=== PATIENT | female | born 1945 | race African-American/Black ===

== ENCOUNTER 2020-04-01 12:51 | Emergency (ER) | payer OTHER ==
[2020-04-01 13:07] VITALS: TEMP 98.4; BMI 30.9
[2020-04-01 16:18] VITALS: BP 167/77; PULSE 54
== END 2020-04-01 16:20 | disposition home or self-care (01) ==
LOC: JER 12:51
DX: R60.0 Localized edema (principal)
CPT/HCPCS: 93971; 93971-TC; 99284-25

== ENCOUNTER 2020-09-15 21:21 | Inpatient (IN) | payer OTHER ==
[2020-09-15 22:15] VITALS: BMI 34.0
[2020-09-15] MEDS ORDERED: ACETAMINOPHEN INJECTION 100 ML IVPB ONE (22:30)
[2020-09-15] MEDS ORDERED: ACETAMINOPHEN 1000 MG/100 ML VIAL (NON FORMULARY) IVPB ONE (22:43)
[2020-09-15 22:50] LABS: BASO % 0.8 % (0-2.0); EOS % 1.2 % (0-4.5); HEMATOCRIT 41.8 % (32.4-45.2); HEMOGLOBIN 14.1 GM/dL (10.7-15.3); LYMPH % 29.9 % (8-40); MCH 34.7 pg (25.7-33.7); MCHC 33.7 g/dl (32.0-36.0); MEAN CELL VOLUME 103.1 fl (80-96); MEAN PLT VOLUME 8.5 fl (7.5-11.1); MONO % 10.8 % (3.8-10.2); NEUT % 57.3 % (42.8-82.8); PLATELET COUNT 219 K/MM3 (134-434); RBC 4.06 M/mm3 (3.60-5.2); RDW 13.7 % (11.6-15.6); WHITE BLOOD COUNT 5.4 K/mm3 (4.0-10.0)
[2020-09-15 22:56] LABS: INR 1.09 (0.83-1.09); PROTHROMBIN TIME (PATIENT) 13.1 SEC (9.7-13.0)
[2020-09-15 23:08] LABS: CHLORIDE 112 mmol/L (98-107); POTASSIUM 3.7 mmol/L (3.5-5.1); SODIUM 144 mmol/L (136-145)
[2020-09-15 23:11] LABS: BLOOD UREA NITROGEN 20.5 mg/dL (7-18); CALCIUM 8.9 mg/dL (8.5-10.1)
[2020-09-15 23:12] LABS: ALBUMIN 3.7 g/dl (3.4-5.0); ANION GAP 6 MMOL/L (8-16); CO2 27 mmol/L (21-32); GLUCOSE,RANDOM 58 mg/dL (74-106)
[2020-09-15 23:15] LABS: CREATININE 1.1 mg/dL (0.55-1.3); SGOT/AST 19 U/L (15-37)
[2020-09-15 23:16] LABS: BILIRUBIN,TOTAL 0.4 mg/dL (0.2-1)
[2020-09-15 23:17] LABS: TOT PROT 7.3 g/dl (6.4-8.2)
[2020-09-15 23:18] LABS: ALK PHOS 71 U/L (45-117)
[2020-09-15 23:40] LABS: SGPT/ALT 16 U/L (13-61)
[2020-09-15] MEDS ORDERED: VALSARTAN 40 MG TABLET PO ONE (23:45)
[2020-09-15] MEDS ORDERED: DEXTROSE 5%-NORMAL SALINE 500 ML IV ONE (23:58)
[2020-09-16] MEDS ORDERED: VALSARTAN 80 MG TABLET ONE ×2 (00:06→11:14)
[2020-09-16 03:55] LABS: PH,URINE 6.5 (5.0-8.0); URINE APPEARANCE CLEAR; URINE BILIRUBIN NEGATIVE (NEGATIVE); URINE COLOR YELLOW; URINE GLUCOSE (UA) NEGATIVE (NEGATIVE); URINE KETONE NEGATIVE (NEGATIVE); URINE LEUK ESTERASE NEGATIVE (NEGATIVE); URINE NITRITE NEGATIVE (NEGATIVE); URINE PROTEIN NEGATIVE (NEGATIVE)
[2020-09-16 04:33] LABS: URINE AMPHETAMINES NEGATIVE ng/ml (CUTOFF=500); URINE BARBITURATES NEGATIVE ng/ml (CUTOFF=200); URINE BENZODIAZEPINES NEGATIVE ng/ml (CUTOFF=200)
[2020-09-16 04:34] LABS: METHADONE, UR NEGATIVE ng/ml (CUTOFF=300); OPIATES, URI NEGATIVE ng/ml (CUTOFF=300); PHENCYCLIDINE,URINE NEGATIVE ng/ml (CUTOFF=25)
[2020-09-16 04:46] LABS: COCAINE, UR NEGATIVE ng/ml (CUTOFF=300)
[2020-09-16] MEDS: HEPARIN NA (PORCINE) 5,000 UNITS/ML 1ML VIAL SQ SCH ×3 (07:13→21:57)
[2020-09-16 07:41] LABS: GAMMA GLUTAMYL TRANSPEPTIDASE 22 U/L (5-85)
[2020-09-16 07:58] LABS: HEMATOCRIT 39.9 % (32.4-45.2); HEMOGLOBIN 13.6 GM/dL (10.7-15.3); MCH 35.1 pg (25.7-33.7); MEAN CELL VOLUME 103.2 fl (80-96); MEAN PLT VOLUME 8.6 fl (7.5-11.1); PLATELET COUNT 195 K/MM3 (134-434); RBC 3.87 M/mm3 (3.60-5.2); RDW 13.8 % (11.6-15.6); WHITE BLOOD COUNT 4.1 K/mm3 (4.0-10.0)
[2020-09-16 08:28] LABS: POTASSIUM 3.6 mmol/L (3.5-5.1)
[2020-09-16 08:39] LABS: CALCIUM 8.8 mg/dL (8.5-10.1)
[2020-09-16 08:40] LABS: BLOOD UREA NITROGEN 16.1 mg/dL (7-18); MAGNESIUM 2.2 mg/dL (1.8-2.4)
[2020-09-16 08:43] LABS: CREATININE 0.9 mg/dL (0.55-1.3)
[2020-09-16 08:47] LABS: PHOSPHOROUS 3.6 mg/dL (2.5-4.9)
[2020-09-16] MEDS: CLOPIDOGREL BISULFATE 75 MG TABLET (FP) PO SCH (11:15)
[2020-09-16] MEDS: VALSARTAN 40 MG TABLET PO SCH (12:01)
[2020-09-16] MEDS: POLYETHYLENE GLYCOL 3350 119 GM BTL PO SCH (12:02)
[2020-09-16] MEDS: ACETAMINOPHEN 325 MG TABLET (FP) PO PRN (21:57)
[2020-09-16] MEDS: amLODIPine BESYLATE 5 MG TABLET (FP) PO SCH (21:57)
[2020-09-17] MEDS: HEPARIN NA (PORCINE) 5,000 UNITS/ML 1ML VIAL SQ SCH ×3 (05:47→21:29)
[2020-09-17 07:36] LABS: POTASSIUM 3.5 mmol/L (3.5-5.1)
[2020-09-17 07:45] LABS: CALCIUM 9.1 mg/dL (8.5-10.1)
[2020-09-17 07:46] LABS: ALBUMIN 3.3 g/dl (3.4-5.0); MAGNESIUM 2.1 mg/dL (1.8-2.4)
[2020-09-17 07:49] LABS: CREATININE 0.9 mg/dL (0.55-1.3); PHOSPHOROUS 4.2 mg/dL (2.5-4.9)
[2020-09-17 07:50] LABS: BILIRUBIN,TOTAL 0.6 mg/dL (0.2-1); TOT PROT 6.8 g/dl (6.4-8.2)
[2020-09-17] MEDS: CLOPIDOGREL BISULFATE 75 MG TABLET (FP) PO SCH (09:19)
[2020-09-17] MEDS: VALSARTAN 40 MG TABLET PO SCH (09:20)
[2020-09-17] MEDS: ACETAMINOPHEN 325 MG TABLET (FP) PO PRN ×2 (09:20→21:29)
[2020-09-17] MEDS: POLYETHYLENE GLYCOL 3350 119 GM BTL PO SCH (09:20)
[2020-09-17] MEDS ORDERED: FLU VACCINE (FLULAVAL) PF 60 MCG/0.5 ML SYRINGE 2020-2021 IM ONE (14:02)
[2020-09-17] MEDS: amLODIPine BESYLATE 5 MG TABLET (FP) PO SCH (21:29)
[2020-09-18] MEDS: HEPARIN NA (PORCINE) 5,000 UNITS/ML 1ML VIAL SQ SCH ×3 (05:48→21:34)
[2020-09-18 07:29] LABS: BASO % 0.4 % (0-2.0); EOS % 2.8 % (0-4.5); HEMATOCRIT 41.4 % (32.4-45.2); HEMOGLOBIN 13.7 GM/dL (10.7-15.3); LYMPH % 36.1 % (8-40); MCH 33.6 pg (25.7-33.7); MEAN CELL VOLUME 101.8 fl (80-96); MEAN PLT VOLUME 8.2 fl (7.5-11.1); MONO % 12.9 % (3.8-10.2); NEUT % 47.8 % (42.8-82.8); PLATELET COUNT 200 K/MM3 (134-434); RBC 4.06 M/mm3 (3.60-5.2); RDW 13.6 % (11.6-15.6); WHITE BLOOD COUNT 4.5 K/mm3 (4.0-10.0)
[2020-09-18 07:43] LABS: POTASSIUM 3.7 mmol/L (3.5-5.1)
[2020-09-18 07:46] LABS: ALBUMIN 3.2 g/dl (3.4-5.0); BLOOD UREA NITROGEN 15.9 mg/dL (7-18); CALCIUM 8.4 mg/dL (8.5-10.1); MAGNESIUM 2.2 mg/dL (1.8-2.4)
[2020-09-18 07:49] LABS: PHOSPHOROUS 3.7 mg/dL (2.5-4.9)
[2020-09-18 07:50] LABS: BILIRUBIN,TOTAL 0.8 mg/dL (0.2-1); TOT PROT 6.4 g/dl (6.4-8.2)
[2020-09-18] MEDS ORDERED: POTASSIUM CHLORIDE TABS 20 MEQ TABLET.ER (FP) PO ONE (08:14)
[2020-09-18] MEDS: VALSARTAN 40 MG TABLET PO SCH (09:52)
[2020-09-18] MEDS: CLOPIDOGREL BISULFATE 75 MG TABLET (FP) PO SCH (09:52)
[2020-09-18] MEDS: POLYETHYLENE GLYCOL 3350 119 GM BTL PO SCH (09:55)
[2020-09-19 05:27] VITALS: TEMP 98.3
[2020-09-19] MEDS: HEPARIN NA (PORCINE) 5,000 UNITS/ML 1ML VIAL SQ SCH ×2 (06:38→13:52)
[2020-09-19 08:08] LABS: BASO % 0.5 % (0-2.0); EOS % 3.5 % (0-4.5); HEMATOCRIT 44.3 % (32.4-45.2); HEMOGLOBIN 14.5 GM/dL (10.7-15.3); MCH 33.8 pg (25.7-33.7); MCHC 32.8 g/dl (32.0-36.0); MEAN CELL VOLUME 103.2 fl (80-96); MEAN PLT VOLUME 8.1 fl (7.5-11.1); MONO % 14.7 % (3.8-10.2); NEUT % 41.3 % (42.8-82.8); PLATELET COUNT 184 K/MM3 (134-434); RBC 4.29 M/mm3 (3.60-5.2); RDW 13.8 % (11.6-15.6); WHITE BLOOD COUNT 4.6 K/mm3 (4.0-10.0)
[2020-09-19 08:24] LABS: POTASSIUM 4.3 mmol/L (3.5-5.1)
[2020-09-19 08:34] LABS: ALBUMIN 3.3 g/dl (3.4-5.0); BLOOD UREA NITROGEN 16.4 mg/dL (7-18)
[2020-09-19 08:35] LABS: BILIRUBIN,TOTAL 0.4 mg/dL (0.2-1); TOT PROT 6.7 g/dl (6.4-8.2)
[2020-09-19 08:37] LABS: PHOSPHOROUS 3.4 mg/dL (2.5-4.9)
[2020-09-19 08:39] LABS: CALCIUM 9.1 mg/dL (8.5-10.1); MAGNESIUM 2.4 mg/dL (1.8-2.4)
[2020-09-19 09:03] VITALS: PULSE 76
[2020-09-19] MEDS ORDERED: PT OWN MED DRAWER 7, Y5N ONE (09:17)
[2020-09-19] MEDS: CLOPIDOGREL BISULFATE 75 MG TABLET (FP) PO SCH (09:43)
[2020-09-19] MEDS: POLYETHYLENE GLYCOL 3350 119 GM BTL PO SCH (09:44)
[2020-09-19] MEDS ORDERED: VALSARTAN 40 MG TABLET PO SCH (10:00)
[2020-09-19] MEDS ORDERED: lamiVUDine 150 MG TABLET PO SCH (10:00)
[2020-09-19] MEDS ORDERED: DOLUTEGRAVIR SODIUM 50 MG TABLET (NON-FORMULARY) PO SCH (10:00)
[2020-09-19] MEDS ORDERED: PATIENT'S OWN MEDICATION (NON-FORMULARY) (Dolutegravir Sodium/Lamivudine [Dovato 50-300 Mg PO SCH (10:00)
[2020-09-19 14:12] VITALS: BP 148/77
[2020-09-19] MEDS ORDERED: PENICILLIN G BENZATHINE 2,400,000 UNIT/4 ML PFS IM ONE (15:00)
[2020-09-19] MEDS ORDERED: amLODIPine BESYLATE 5 MG TABLET (FP) PO ONE (16:32)
[2020-09-19] MEDS ORDERED: amLODIPine BESYLATE 10 MG TABLET (FP) PO SCH (22:00)
[2020-09-20] MEDS ORDERED: amLODIPine BESYLATE 10 MG TABLET (FP) PO SCH (10:00)
== END 2020-09-19 17:35 | DRG 309 ==
LOC: JER 21:21 → JERBED 09-16 01:38 → INTOOBSV 09-16 01:38 → OBSVTOIN 09-16 01:38 → J4S 09-16 18:05 → J4W 09-18 00:31
PROVIDERS: ADMIT Internal Medicine; ATTEND Internal Medicine
DX: R00.1 Bradycardia, unspecified (principal); I69.354 Hemiplegia and hemiparesis following cerebral infarction affecting left non-dominant side; M21.372 Foot drop, left foot; I42.2 Other hypertrophic cardiomyopathy; E11.9 Type 2 diabetes mellitus without complications; Z68.34 Body mass index [BMI] 34.0-34.9, adult; E66.9 Obesity, unspecified; Z21 Asymptomatic human immunodeficiency virus [HIV] infection status; A53.9 Syphilis, unspecified; M75.21 Bicipital tendinitis, right shoulder; T44.7X5A Adverse effect of beta-adrenoreceptor antagonists, initial encounter; K21.9 Gastro-esophageal reflux disease without esophagitis; I16.0 Hypertensive urgency; R55 Syncope and collapse; G43.909 Migraine, unspecified, not intractable, without status migrainosus
CPT/HCPCS: 36415; 70450-TC; 70486-TC; 70551-TC; 71045-TC-FY; 72125-TC; 73030-TC-LT-FY; 73070-TC-LT-FY; 80048; 80053; 80061; 80307; 81003; 82550; 82553; 82607; 82746; 82962; 82977; 83036; 83721; 83735; 84100; 84443; 84484; 85025; 85027; 85610; 86593; 86780; 86850; 86900; 86901; 87086; 93005; 93010; 93306-TC; 93880-TC; 93970-TC; 93971-TC; 97116-GP; 97161-GP; 99285-25; C9803; G0008; G0378; G0480; J0131; J1644; Q2036; U0003

== ENCOUNTER 2023-10-07 09:25 | Observation (INO) | payer OTHER ==
[2023-10-07 09:30] VITALS: BMI 32.3
[2023-10-07] MEDS ORDERED: SODIUM CHLORIDE 0.9% 500 ML INFUS.BAG IV ONE ×2 (10:52→15:23)
[2023-10-07] MEDS ORDERED: ACETAMINOPHEN 1000 MG/100 ML BAG IVPB ONE (10:53)
[2023-10-07] MEDS ORDERED: ACETAMINOPHEN INJECTION 100 ML IVPB ONE (11:08)
[2023-10-07 11:45] LABS: HEMATOCRIT 42.6 % (32.4-45.2); MCH 32.5 pg (25.7-33.7); MEAN CELL VOLUME 98.7 fl (80-96); MEAN PLT VOLUME 8.3 fl (7.5-11.1); PLATELET COUNT 161 10^3/uL (134-434); RBC 4.32 M/mm3 (3.60-5.2); WHITE BLOOD COUNT 5.9 K/mm3 (4.0-10.0)
[2023-10-07 12:01] LABS: INR 1.24 (0.83-1.09); PROTHROMBIN TIME (PATIENT) 14.3 SEC (9.7-13.0)
[2023-10-07 12:04] LABS: ACTIVATED PTT 32.3 SECONDS (25.2-36.5)
[2023-10-07 12:17] LABS: POTASSIUM 3.4 mmol/L (3.5-5.1)
[2023-10-07 12:21] LABS: CALCIUM 9.1 mg/dL (8.5-10.1)
[2023-10-07 12:22] LABS: ALBUMIN 3.2 g/dl (3.4-5.0); BLOOD UREA NITROGEN 17.6 mg/dL (7-18)
[2023-10-07 12:24] LABS: CREATININE 1.4 mg/dL (0.55-1.3)
[2023-10-07 12:25] LABS: TOT PROT 7.1 g/dl (6.4-8.2)
[2023-10-07 12:26] LABS: BILIRUBIN,TOTAL 0.4 mg/dL (0.2-1)
[2023-10-07 12:29] LABS: N-TERMINAL BNP 778.2 pg/ml (5-450)
[2023-10-07] MEDS ORDERED: ASPIRIN COATED 81 MG TABLET.EC PO ONE (12:38)
[2023-10-07 13:13] LABS: ANISOCYTOSIS 0; MACROCYTOSIS 0
[2023-10-07] MEDS ORDERED: ASPIRIN COATED 81 MG TABLET.EC ONE (13:27)
[2023-10-07] MEDS: SODIUM CHLORIDE 1,000 ML IV SCH (15:35)
[2023-10-07 15:46] LABS: EPI CELLS 8 /uL (0-25.1); HYALINE CASTS 1 /uL (0-3.1); URINE APPEARANCE CLOUDY; URINE BACTERIA 989 /uL (0-1359); URINE BILIRUBIN NEGATIVE (NEGATIVE); URINE COLOR YELLOW; URINE GLUCOSE (UA) NEGATIVE (NEGATIVE); URINE KETONE 1+ (NEGATIVE); URINE LEUK ESTERASE 2+ (NEGATIVE); URINE NITRITE NEGATIVE (NEGATIVE); URINE PROTEIN 1+ (NEGATIVE)
[2023-10-07 16:46] LABS: URINE RBC 44.3 /uL (0-23.9)
[2023-10-07 16:47] LABS: URINE WBC 1638 /uL (0-25.8); YEAST NONE SEEN (NEGATIVE)
[2023-10-07] MEDS ORDERED: guaiFENesin 200 MG/10 ML 10 ML UNIT-DOSE CUPS PO PRN (18:07)
[2023-10-07] MEDS ORDERED: POTASSIUM CHLORIDE TABS 20 MEQ TABLET.ER (FP) PO ONE ×2 (18:25→19:33)
[2023-10-07] MEDS ORDERED: DIVALPROEX SODIUM 500 MG TABLET E.C. ONE (22:32)
[2023-10-07] MEDS ORDERED: ATORVASTATIN CA 10 MG TABLET (FP) ONE (22:32)
[2023-10-07] MEDS: ATORVASTATIN CA 10 MG TABLET (FP) PO SCH (22:38)
[2023-10-07] MEDS: OSELTAMIVIR PHOSPHATE 30 MG CAPSULE PO SCH (22:38)
[2023-10-07] MEDS: DIVALPROEX NA *ER* EXTEND REL 500 MG TABLET.SA (FP) PO SCH (22:38)
[2023-10-08] MEDS ORDERED: LOSARTAN POTASSIUM 50 MG TABLET ONE (02:47)
[2023-10-08] MEDS: LOSARTAN POTASSIUM 50 MG TABLET PO SCH ×2 (02:54→09:10)
[2023-10-08] MEDS ORDERED: ACETAMINOPHEN 325 MG TABLET (FP) ONE (06:08)
[2023-10-08] MEDS: ACETAMINOPHEN 325 MG TABLET (FP) PO PRN (06:13)
[2023-10-08] MEDS: DOLUTEGRAVIR SODIUM 50 MG TABLET (NON-FORMULARY) PO SCH (09:10)
[2023-10-08] MEDS: lamiVUDine 150 MG TABLET PO SCH (09:10)
[2023-10-08] MEDS: CLOPIDOGREL BISULFATE 75 MG TABLET (FP) PO SCH (09:11)
[2023-10-08] MEDS: OSELTAMIVIR PHOSPHATE 30 MG CAPSULE PO SCH ×2 (09:11→22:32)
[2023-10-08] MEDS ORDERED: PATIENT'S OWN MEDICATION (NON-FORMULARY) (Dolutegravir Sodium/Lamivudine [Dovato 50-300 Mg PO SCH (10:00)
[2023-10-08 10:01] LABS: BASO % 0.3 % (0-2.0); HEMATOCRIT 42.4 % (32.4-45.2); HEMOGLOBIN 14.3 GM/dL (10.7-15.3); LYMPH % 11.9 % (8-40); MCHC 33.7 g/dl (32.0-36.0); MEAN PLT VOLUME 8.5 fl (7.5-11.1); MONO % 10.3 % (3.8-10.2); NEUT % 77.5 % (42.8-82.8); PLATELET COUNT 156 10^3/uL (134-434); RBC 4.33 M/mm3 (3.60-5.2); RDW 14.4 % (11.6-15.6); WHITE BLOOD COUNT 8.4 K/mm3 (4.0-10.0)
[2023-10-08 10:46] LABS: POTASSIUM 3.9 mmol/L (3.5-5.1)
[2023-10-08 10:52] LABS: CALCIUM 8.4 mg/dL (8.5-10.1)
[2023-10-08 10:54] LABS: BLOOD UREA NITROGEN 12.9 mg/dL (7-18); MAGNESIUM 1.7 mg/dL (1.8-2.4)
[2023-10-08 10:57] LABS: BILIRUBIN,TOTAL 0.5 mg/dL (0.2-1); CREATININE 0.9 mg/dL (0.55-1.3); TOT PROT 6.8 g/dl (6.4-8.2)
[2023-10-08] MEDS: FAMOTIDINE 20 MG TABLET PO SCH (11:21)
[2023-10-08] MEDS ORDERED: NAPH,MB-DB/K PH,MBDB POWDER PACKET PO ONE (14:47)
[2023-10-08] MEDS ORDERED: MAGNESIUM OXIDE 400 MG TABLET (FP) PO ONE (14:47)
[2023-10-08] MEDS: SODIUM CHLORIDE 1,000 ML IV SCH (17:27)
[2023-10-08] MEDS: ATORVASTATIN CA 10 MG TABLET (FP) PO SCH (22:32)
[2023-10-08] MEDS: DIVALPROEX NA *ER* EXTEND REL 500 MG TABLET.SA (FP) PO SCH (22:32)
[2023-10-09 08:46] LABS: BASO % 0.3 % (0-2.0); EOS % 0.6 % (0-4.5); HEMATOCRIT 41.1 % (32.4-45.2); HEMOGLOBIN 14.2 GM/dL (10.7-15.3); LYMPH % 29.5 % (8-40); MCH 33.7 pg (25.7-33.7); MCHC 34.5 g/dl (32.0-36.0); MEAN CELL VOLUME 97.6 fl (80-96); MEAN PLT VOLUME 8.7 fl (7.5-11.1); MONO % 8.2 % (3.8-10.2); NEUT % 61.4 % (42.8-82.8); PLATELET COUNT 159 10^3/uL (134-434); RBC 4.21 M/mm3 (3.60-5.2); RDW 14.3 % (11.6-15.6); WHITE BLOOD COUNT 4.2 K/mm3 (4.0-10.0)
[2023-10-09 09:38] LABS: ALBUMIN 2.7 g/dl (3.4-5.0); BILIRUBIN,TOTAL 0.3 mg/dL (0.2-1); BLOOD UREA NITROGEN 9.6 mg/dL (7-18); CALCIUM 8.8 mg/dL (8.5-10.1); CREATININE 0.9 mg/dL (0.55-1.3); POTASSIUM 3.9 mmol/L (3.5-5.1); TOT PROT 6.6 g/dl (6.4-8.2)
[2023-10-09] MEDS: lamiVUDine 150 MG TABLET PO SCH (10:07)
[2023-10-09] MEDS: CLOPIDOGREL BISULFATE 75 MG TABLET (FP) PO SCH (10:08)
[2023-10-09] MEDS: FAMOTIDINE 20 MG TABLET PO SCH (10:08)
[2023-10-09] MEDS: DOLUTEGRAVIR SODIUM 50 MG TABLET (NON-FORMULARY) PO SCH (10:08)
[2023-10-09] MEDS: LOSARTAN POTASSIUM 50 MG TABLET PO SCH (10:08)
[2023-10-09] MEDS: OSELTAMIVIR PHOSPHATE 30 MG CAPSULE PO SCH ×2 (10:09→21:37)
[2023-10-09] MEDS: ACETAMINOPHEN 325 MG TABLET (FP) PO PRN (13:24)
[2023-10-09] MEDS: SODIUM CHLORIDE 1,000 ML IV SCH (15:54)
[2023-10-09] MEDS: ATORVASTATIN CA 10 MG TABLET (FP) PO SCH (21:37)
[2023-10-09] MEDS: DIVALPROEX NA *ER* EXTEND REL 500 MG TABLET.SA (FP) PO SCH (22:42)
[2023-10-10] MEDS: LOSARTAN POTASSIUM 50 MG TABLET PO SCH (10:08)
[2023-10-10] MEDS: FAMOTIDINE 20 MG TABLET PO SCH (10:08)
[2023-10-10] MEDS: CLOPIDOGREL BISULFATE 75 MG TABLET (FP) PO SCH (10:08)
[2023-10-10] MEDS: OSELTAMIVIR PHOSPHATE 30 MG CAPSULE PO SCH ×2 (10:12→21:09)
[2023-10-10] MEDS: DOLUTEGRAVIR SODIUM 50 MG TABLET (NON-FORMULARY) PO SCH (10:12)
[2023-10-10] MEDS: lamiVUDine 150 MG TABLET PO SCH (10:12)
[2023-10-10] MEDS: SODIUM CHLORIDE 1,000 ML IV SCH (18:48)
[2023-10-10] MEDS: ATORVASTATIN CA 10 MG TABLET (FP) PO SCH (21:09)
[2023-10-10] MEDS: DIVALPROEX NA *ER* EXTEND REL 500 MG TABLET.SA (FP) PO SCH ×2 (21:09→21:16)
[2023-10-11] MEDS: SODIUM CHLORIDE 1,000 ML IV SCH ×2 (08:59→15:30)
[2023-10-11] MEDS: LOSARTAN POTASSIUM 50 MG TABLET PO SCH (09:00)
[2023-10-11] MEDS: CLOPIDOGREL BISULFATE 75 MG TABLET (FP) PO SCH (09:00)
[2023-10-11] MEDS: OSELTAMIVIR PHOSPHATE 30 MG CAPSULE PO SCH ×2 (09:01→21:32)
[2023-10-11] MEDS: FAMOTIDINE 20 MG TABLET PO SCH (09:01)
[2023-10-11] MEDS: DOLUTEGRAVIR SODIUM 50 MG TABLET (NON-FORMULARY) PO SCH (09:01)
[2023-10-11] MEDS: lamiVUDine 150 MG TABLET PO SCH (09:01)
[2023-10-11] MEDS: BENZOCAINE/MENTH/CETYLPYRD CL 1 EACH LOZENGE MM PRN (13:50)
[2023-10-11] MEDS: CEFTRIAXONE 1 GM in DEXTROSE 5%-WATER - 50 ML IVPB SCH (20:17)
[2023-10-11] MEDS: DIVALPROEX NA *ER* EXTEND REL 500 MG TABLET.SA (FP) PO SCH (21:32)
[2023-10-11] MEDS: ATORVASTATIN CA 10 MG TABLET (FP) PO SCH (21:32)
[2023-10-12] MEDS: CEFTRIAXONE 1 GM in DEXTROSE 5%-WATER - 50 ML IVPB SCH (09:29)
[2023-10-12] MEDS: CLOPIDOGREL BISULFATE 75 MG TABLET (FP) PO SCH (09:29)
[2023-10-12] MEDS: FAMOTIDINE 20 MG TABLET PO SCH (09:29)
[2023-10-12] MEDS: LOSARTAN POTASSIUM 50 MG TABLET PO SCH (09:29)
[2023-10-12] MEDS: lamiVUDine 150 MG TABLET PO SCH (09:30)
[2023-10-12] MEDS: OSELTAMIVIR PHOSPHATE 30 MG CAPSULE PO SCH ×2 (09:30→21:49)
[2023-10-12] MEDS: DOLUTEGRAVIR SODIUM 50 MG TABLET (NON-FORMULARY) PO SCH (09:31)
[2023-10-12] MEDS: ALBUTEROL SO4 2.5/IPRATROPIUM 0.5 INH SOL 3 ML VIAL.NEB. NEB SCH ×3 (15:38→20:05)
[2023-10-12] MEDS: SODIUM CHLORIDE 1,000 ML IV SCH (19:26)
[2023-10-12] MEDS: DIVALPROEX NA *ER* EXTEND REL 500 MG TABLET.SA (FP) PO SCH (21:49)
[2023-10-12] MEDS: ATORVASTATIN CA 10 MG TABLET (FP) PO SCH (21:50)
[2023-10-12] MEDS: BENZOCAINE/MENTH/CETYLPYRD CL 1 EACH LOZENGE MM PRN (22:03)
[2023-10-13] MEDS: ALBUTEROL SO4 2.5/IPRATROPIUM 0.5 INH SOL 3 ML VIAL.NEB. NEB SCH ×3 (07:40→16:42)
[2023-10-13] MEDS ORDERED: POLYETHYLENE GLYCOL (HEALTHYLAX) 3350 17 GM PACKET PO SCH (10:00)
[2023-10-13] MEDS: CLOPIDOGREL BISULFATE 75 MG TABLET (FP) PO SCH (10:57)
[2023-10-13] MEDS: LOSARTAN POTASSIUM 50 MG TABLET PO SCH (10:57)
[2023-10-13] MEDS: FAMOTIDINE 20 MG TABLET PO SCH (10:57)
[2023-10-13] MEDS: CEFTRIAXONE 1 GM in DEXTROSE 5%-WATER - 50 ML IVPB SCH (10:57)
[2023-10-13] MEDS: DOLUTEGRAVIR SODIUM 50 MG TABLET (NON-FORMULARY) PO SCH (10:58)
[2023-10-13] MEDS: lamiVUDine 150 MG TABLET PO SCH (10:58)
[2023-10-13 13:14] VITALS: BP 156/71; PULSE 68; TEMP 97.9
[2023-10-13 15:26] VITALS: RESP 18
== END 2023-10-13 18:18 | disposition home or self-care (01) ==
LOC: JER 09:25 → JERBED 15:25 → J4S 10-08 19:14
PROVIDERS: ADMIT Internal Medicine; ATTEND Internal Medicine
PROC: 3E033NZ Introduction of Analgesics, Hypnotics, Sedatives into Peripheral Vein, Percutaneous Approach (ICD-10-PCS; principal; 2023-10-07)
PROC: 3E0F7GC Introduction of Other Therapeutic Substance into Respiratory Tract, Via Natural or Artificial Opening (ICD-10-PCS; 2023-10-07)
PROC: 3E03329 Introduction of Other Anti-infective into Peripheral Vein, Percutaneous Approach (ICD-10-PCS; 2023-10-07)
PROC: 3E0337Z Introduction of Electrolytic and Water Balance Substance into Peripheral Vein, Percutaneous Approach (ICD-10-PCS; 2023-10-07)
DX: J09.X2 Influenza due to identified novel influenza A virus with other respiratory manifestations (principal); R55 Syncope and collapse; K21.9 Gastro-esophageal reflux disease without esophagitis; I10 Essential (primary) hypertension; K92.9 Disease of digestive system, unspecified; I42.2 Other hypertrophic cardiomyopathy; Z90.79 Acquired absence of other genital organ(s); N17.9 Acute kidney failure, unspecified; R77.9 Abnormality of plasma protein, unspecified; Z86.73 Personal history of transient ischemic attack (TIA), and cerebral infarction without residual deficits; Z88.2 Allergy status to sulfonamides
CPT/HCPCS: 0241U-QW; 36415; 70450-TC; 71045-TC-FY; 80053; 81003; 83735; 83880; 84100; 84484; 85025; 85610; 85730; 86359; 86360; 86850; 86900; 86901; 87086; 87186; 93005; 93010; 94010; 94640; 96361; 96365; 96375; 97116-GP; 97161-GP; 99285-25; G0378